=== PATIENT | female | born 1940 | race African-American/Black ===

== ENCOUNTER 2020-05-28 04:31 | Inpatient (IN) | payer BC, OTHER ==
[2020-05-27 12:59] VITALS: BMI 38.4
[2020-05-28] MEDS ORDERED: ceFAZolin SODIUM 1 GM VIAL ONE ×2 (07:06→08:31)
[2020-05-28] MEDS ORDERED: PROPOFOL 20 ML ONE ×2 (07:18)
[2020-05-28] MEDS ORDERED: ONDANSETRON 4 MG/2 ML VIAL ONE ×2 (07:19→09:40)
[2020-05-28] MEDS ORDERED: LIDOCAINE HCL/PF 2% SDV 5ML VIAL ONE (07:19)
[2020-05-28] MEDS ORDERED: DEXAMETHASONE SOD PHOSPHATE 4 MG/1 ML VIAL ONE ×2 (07:19→09:40)
[2020-05-28] MEDS ORDERED: ROCURONIUM BROMIDE 100 MG/10 ML VIAL ONE ×2 (07:19→08:47)
[2020-05-28] MEDS ORDERED: fentaNYL CITRATE 250 MCG/5 ML VIAL ONE (07:29)
[2020-05-28] MEDS ORDERED: MIDAZOLAM HCL 2 MG/2 ML SINGLE DOSE VIAL ONE ×2 (07:32)
[2020-05-28] MEDS ORDERED: LABETALOL HCL 5 MG/1 ML (100MG/20 ML VIAL) ONE (08:17)
[2020-05-28] MEDS ORDERED: ceFAZolin 2 GRAM PREMIX BAG IVPB ONE (08:35)
[2020-05-28] MEDS ORDERED: TRANEXAMIC ACID 1000 MG/10 ML VIAL ONE ×2 (09:00→09:27)
[2020-05-28] MEDS ORDERED: NEOSTIGMINE METHYLSULFATE 0.5 MG/ML - 10 ML MDV ONE (09:29)
[2020-05-28] MEDS ORDERED: GLYCOPYRROLATE 0.2 MG/1 ML VIAL ONE (09:29)
[2020-05-28] MEDS ORDERED: oxyCODONE HCL 5 MG TABLET PO PRN ×2 (10:27)
[2020-05-28] MEDS ORDERED: ACETAMINOPHEN 325 MG TABLET (FP) PO PRN (10:27)
[2020-05-28] MEDS ORDERED: ONDANSETRON 4 MG/2 ML VIAL IVPUSH PRN (11:07)
[2020-05-28] MEDS ORDERED: IBUPROFEN 800 MG/8 ML IJ IVPB ONE (11:34)
[2020-05-28] MEDS: IBUPROFEN 800 MG/8 ML IJ IVPB PRN (11:39)
[2020-05-28] MEDS: CLINDAMYCIN 600MG PREMIX IVPB 600 MG/50 ML BAG IVPB SCH (18:00)
[2020-05-28] MEDS: LACTATED RINGERS SOLUTION 1,000 ML/1,000 ML INFUS.BAG IV SCH (18:01)
[2020-05-29] MEDS: CLINDAMYCIN 600MG PREMIX IVPB 600 MG/50 ML BAG IVPB SCH ×3 (01:46→17:41)
[2020-05-29] MEDS: LACTATED RINGERS SOLUTION 1,000 ML/1,000 ML INFUS.BAG IV SCH ×2 (01:46→10:59)
[2020-05-29 07:43] LABS: BASO % 0.2 % (0-2.0); HEMATOCRIT 34.3 % (32.4-45.2); HEMOGLOBIN 11.3 GM/dL (10.7-15.3); LYMPH % 20.2 % (8-40); MCH 27.2 pg (25.7-33.7); MCHC 32.8 g/dl (32.0-36.0); MEAN CELL VOLUME 82.7 fl (80-96); MEAN PLT VOLUME 10.5 fl (7.5-11.1); MONO % 12.4 % (3.8-10.2); NEUT % 67.2 % (42.8-82.8); PLATELET COUNT 163 K/MM3 (134-434); RBC 4.15 M/mm3 (3.60-5.2); RDW 15.9 % (11.6-15.6); WHITE BLOOD COUNT 10.4 K/mm3 (4.0-10.0)
[2020-05-29] MEDS: IBUPROFEN 800 MG/8 ML IJ IVPB PRN ×2 (09:03→16:40)
[2020-05-29] MEDS ORDERED: MAG HYDROX/AL HYDROX/SIMETH 30 ML UNIT-DOSE CUP PO PRN (16:06)
[2020-05-29] MEDS ORDERED: SIMETHICONE 40 MG/0.6 ML BOTTLE PO PRN (16:06)
[2020-05-29] MEDS ORDERED: BISACODYL 10 MG SUPP.RECT PR PRN (16:07)
[2020-05-29] MEDS ORDERED: SIMETHICONE 80 MG TAB.CHEW (FP) PO PRN (16:13)
[2020-05-29] MEDS ORDERED: metFORMIN HCL 500 MG TABLET (FP) PO ONE (16:16)
[2020-05-29] MEDS ORDERED: metFORMIN HCL 500 MG TABLET (FP) PO SCH (16:30)
[2020-05-29] MEDS: VALSARTAN 160 MG TABLET PO SCH (16:45)
[2020-05-30] MEDS: CLINDAMYCIN 600MG PREMIX IVPB 600 MG/50 ML BAG IVPB SCH ×3 (01:05→17:39)
[2020-05-30] MEDS: VALSARTAN 160 MG TABLET PO SCH (15:36)
[2020-05-30] MEDS: LACTATED RINGERS SOLUTION 1,000 ML/1,000 ML INFUS.BAG IV SCH (17:42)
[2020-05-31] MEDS: CLINDAMYCIN 600MG PREMIX IVPB 600 MG/50 ML BAG IVPB SCH ×3 (02:14→17:03)
[2020-05-31] MEDS: VALSARTAN 160 MG TABLET PO SCH (09:32)
[2020-05-31] MEDS ORDERED: guaiFENesin/D-M SUGAR-FREE/ACLHOL-FREE 118 ML BOTTLE PO ONE (22:27)
[2020-06-01] MEDS: CLINDAMYCIN 600MG PREMIX IVPB 600 MG/50 ML BAG IVPB SCH ×2 (01:21→09:14)
[2020-06-01 06:16] VITALS: BP 158/85; PULSE 85; TEMP 98.4
[2020-06-01] MEDS: VALSARTAN 160 MG TABLET PO SCH (09:13)
== END 2020-06-01 13:32 | disposition home or self-care (01) | DRG 743 ==
LOC: J2C 04:31 → J7W 15:47
PROVIDERS: ADMIT Obstetrics & Gynecology; ATTEND Obstetrics & Gynecology
PROC: 0UT70ZZ Resection of Bilateral Fallopian Tubes, Open Approach (ICD-10-PCS; 2020-05-28)
PROC: 0UT20ZZ Resection of Bilateral Ovaries, Open Approach (ICD-10-PCS; 2020-05-28)
PROC: 0UT90ZZ Resection of Uterus, Open Approach (ICD-10-PCS; principal; 2020-05-28 08:00)
DX: D25.9 Leiomyoma of uterus, unspecified (principal); N92.4 Excessive bleeding in the premenopausal period
CPT/HCPCS: 36415; 82962; 85025; 88104; 88305-TC; 88309-TC; 94760; 97116-GP; 97161-GP